=== PATIENT | male | born 1935 | race Caucasian/White ===

== ENCOUNTER 2018-08-16 13:01 | Inpatient (IN) | payer OTHER ==
[~2018-08-16] VITALS: Ht 165.1 cm; Wt 56.1 kg
[~2018-08-16 13:01] MED LIST: ASPI325T30; BENA5TAB33; CARV3.1260; CLOP75TA19; CLOP75TA19 PO; NITR0.4T32
[2018-08-16 13:14] VITALS: Ht 165.1 cm; Wt 56.1 kg
[2018-08-16] MEDS ORDERED: TICA90TA PO (14:47)
[2018-08-16] MEDS ORDERED: ASPI-817 PO (14:47)
[2018-08-16] MEDS ORDERED: CEFP200T2 PO (14:48)
[2018-08-16] MEDS ORDERED: ATOR40TA68 PO (14:48)
[2018-08-16] MEDS ORDERED: METO-335 PO (14:49)
[2018-08-16] MEDS ORDERED: ONDANSETRON 4 MG INJ IV PRN ×2 (15:00→16:00)
[2018-08-16] MEDS ORDERED: ACETAMINOPHEN 325 MG TAB PO PRN (15:00)
[2018-08-16] MEDS ORDERED: NACL 0.9% 3 ML SYG IV SCH (16:00)
--- NOTE | 2018-08-16 16:00 | HP ---
Date/Time of Note Date/Time of Note DATE: 08/16/18 TIME: 15:57 Assessment/Plan VTE Prophylaxis Pharmacological prophylaxis: NA/contraindicated Pharm contraindication: bleeding Lines/Catheters IV Catheter Type (from [email or web address] [place] Assessment/Plan Hospital Course 82-year-old male with comorbidities including hypertension, CAD, and dyslipidemia who recently had a coronary artery stent placed and was started on dual antiplatelet therapy who presented to the emergency room with complaints of hematuria and will be admitted to inpatient setting for further treatment and evaluation. 1. Hematuria. -Most probably secondary to use of dual antiplatelet therapy. -The patient needs to be on dual antiplatelet therapy to prevent stent restenosis. -Urology consult has been obtained to evaluate for any other etiologies. -Urinalysis has been positive and urine cultures were sent. -No antibiotics will be initiated unless recommended by urology. 2. CAD, status post coronary artery stenting. -Continue dual antiplatelet therapy. -Continue statins -Continue beta-blockers. -Obtain cardiology consult. 3. Hypertension. -Resume beta-blockers. 4. Dyslipidemia. -Resume statins. Plan: The patient will be admitted to inpatient telemetry floor. The patient will be started on a low-cholesterol diet. The patient will be started on DVT prophylaxis (bilateral SCDs). The patient will remain a full code. Activities will be as tolerated. The rest of the patient's management will be based on the clinical course, inputs from consultants, and the results of diagnostic studies. Based on the patient's clinical presentation, he most probably requires at least 1 midnight's stay for further management and evaluation of his clinical pr esentation. The patient was seen in collaboration with Dr. Pepper. Result Diagram: 08/16/18 1445 08/16/18 1445 Results 24hrs Laboratory Tests Test 08/16/18 14:45 White Blood Count 7.3 Red Blood Count 4.25 L Hemoglobin 12.4 L Hematocrit 37.8 L Mean Corpuscular Volume 88.9 Mean Corpuscular Hemoglobin 29.2 Mean Corpuscular Hemoglobin Concent 32.8 Red Cell Distribution Width 13.5 Platelet Count 228 Mean Platelet Volume 9.2 Immature Granulocytes % 0.300 Neutrophils % 73.7 Lymphocytes % 15.7 Monocytes % 6.7 Eosinophils % 3.1 Basophils % 0.5 Nucleated Red Blood Cells % 0.0 Immature Granulocytes # 0.020 Neutrophils # 5.4 Lymphocytes # 1.2 Monocytes # 0.5 Eosinophils # 0.2 Basophils # 0.0 Nucleated Red Blood Cells # 0.0 Prothrombin Time 13.3 Prothrombin Time Ratio 1.0 INR International Normalized Ratio 1.00 Activated Partial Thromboplast Time 28.1 Urine Color RED Urine Clarity SLIGHTLY CLOUDY Urine pH 6.0 Urine Specific [place] 1.005 Urine Ketones NEGATIVE Urine Nitrite NEGATIVE Urine Bilirubin NEGATIVE Urine Urobilinogen 1+ H Urine Leukocyte Esterase 1+ H Urine Microscopic RBC 70 H Urine Microscopic WBC > 182 H Urine Squamous Epithelial Cells FEW Urine Hemoglobin 3+ Urine Glucose NEGATIVE Urine Total Protein 3+ H Sodium Level 140 Potassium Level 4.3 Chloride Level 103 Carbon Dioxide Level 28 Anion Gap 9 Blood Urea Nitrogen 19 Creatinine 0.93 Est Glomerular Filtrat Rate mL/min Glucose Level 96 Calcium Level 9.1 Total Bilirubin 0.4 Direct Bilirubin 0.00 Indirect Bilirubin 0.4 Aspartate Amino Transf (AST/SGOT) 22 Alanine Aminotransferase (ALT/SGPT) 26 Alkaline Phosphatase 109 Total Protein 7.5 Albumin 4.2 Globulin 3.30 H Albumin/Globulin Ratio 1.27 Lipase 159 HPI/ROS Admit Date/Time Admit Date/Time Hx of Present Illness Reason for admission: Hematuria. Consultants 1. Jace Casanova MD, Urology. This is a 82-year-old male with a past medical history of CAD status post coronary artery stenting in 2011 and recent coronary artery stenting a few days ago, hypertension, and hyperlipidemia. Patient verbalized that he had his last stent put in a hospital in [place], when he was attending a function in the local area. After the latest stent placement, the patient was started on Brilinta along with aspirin. The patient came back to [place]. The patient has been noticing episodes of hematuria. The patient went to [facility] emergency room on 08/15/2018 where he was evaluated and was discharged home on antibiotics for an apparent urinary tract infection. The patient denied any dysuria, urinary urgency frequency, or febrile illness. The patient denied any flank pain. The patient also had similar problem with hematuria after his first stent placement in 2011. In the emergency room at [facility], the patient was noticed to have a hemoglobin hematocrit of 12.4 and 37.8 respectively. The patient's urinalysis was showing 3+ hemoglobin. Urinalysis also showed 1+ leukocyte esterase with urine microscopic WBC more than 182. The patient's WBC in the b lood was within normal limits. ROS Constitutional: no complaints Eyes: no complaints ENT: no complaints Respiratory: no complaints Cardiovascular: no complaints Gastrointestinal: no complaints Genitourinary: bleeding Musculoskeletal: no complaints Skin: no complaints Neurologic: no complaints Endocrine: no complaints Lymphatic: no complaints Psychological: no complaints Immunologic: no complaints PMH/Family/Social Past Medical History 1. Hypertension. 2. CAD. 3. Dyslipidemia. Medications Current Medications Ondansetron HCl (Zofran Inj) 4 mg ER BRIDGE PRN IV NAUSEA/VOMITING; Start 08/16/18 at 15:00; Stop 08/17/18 at 14:59 Acetaminophen (Tylenol Tab) 650 mg ER BRIDGE PRN PO .MILD PAIN 1-3 OR TEMP; Start 08/16/18 at 15:00; Stop 08/17/18 at 14:59 Coded Allergies: No Known Allergy (Unverified , 08/16/18) Past Surgical History 1. Left heart catheterization with drug-eluting stent placed on 07/18/2011. 2. Left heart catheterization with stent placement in July 2018 with details unavailable Social History The patient lives at home. The patient has a caregiver. Alcohol Use: none Smoking Status: Never smoker Drug Use: none Exam/Review of Systems Vital Signs Vitals Vital Signs Date Temp Pulse Resp B/P (MAP) Pulse Ox O2 O2 Flow FiO2 Time Delivery Rate 08/16/18 98.6 58 20 136/74 100 Room Air 14:46 (94) Exam Exam General: Adequately build 82 year-old male lying in bed in no apparent distress. HEENT: Normocephalic, atraumatic. Eyes: Anicteric sclerae, conjunctivae clear. ENT: Nasal septum midline, oral mucosa moist. Neck supple, no JVD noticed. Respiratory: Bilaterally clear breath sounds. No use of accessory muscles of respiration. No adventitious breath sounds. Cardiovascular: S1, S2 heard. Regular rate and rhythm. Abdomen: Soft, nontender, and nondistended. Bowel sounds positive in all 4 quadrants. Genitourinary: Deferred. Extremities: No cyanosis, no clubbing, no edema. Peripheral pulses palpable. Neurologic: Cranial nerves II through XII grossly intact. The patient is awake, alert, and oriented. Skin: Normal skin turgor. No skin rashes. RUI NOBLES NP August 16, 2018 16:00
--- NOTE | 2018-08-16 16:26 | ERD ---
ER Documentation Chief Complaint Chief Complaint Complains of ablood in the urine x 1 week HPI Patient is an 82-year-old male with coronary disease and possible prostate cancer who presents with "blood in urine". He said that it started 10 to 14 days ago and comes and goes. However today he had blood in the urine that did not stop. He denies fevers and denies pain. He has had prostate issues in the past. He started Brilinta on July 29 after he had a cardiac stent placed for LA. He is also on baby aspirin. Upon review of old medical records this is the patient's seventh visit to the ER since 2011. His primary doctor is Dr. Levy and he does not have a urologist. ROS All systems reviewed and are negative except as per history of present illness. Medications Home Meds Reported Medications Metoprolol Succinate* (Toprol XL*) 25 Mg Tab.sr.24h, 25 MG PO DAILY, #30 TAB 08/16/18 Atorvastatin* (Atorvastatin*) 40 Mg Tablet, 40 MG PO QHS, #30 TAB 08/16/18 Cefpodoxime Proxetil* (Cefpodoxime Proxetil*) 200 Mg Tablet, 200 MG PO Q12, #20 TAB 08/16/18 Ticagrelor* (Brilinta*) 90 Mg Tablet, 90 MG PO Q12, TAB 08/16/18 Aspirin* (Aspirin* EC) 81 Mg Tablet.dr, 81 MG PO DAILY, TAB 08/16/18 Discontinued Reported Medications Aspirin* (Aspirin*) 325 Mg Tablet, DAILY 10/03/11 Clopidogrel Bisulfate (Plavix) 75 Mg Tablet, 75 MG PO DAILY 08/19/11 Nitroglycerin* (Nitroglycerin* SL) 0.4 Mg Tab.subl 07/20/11 Clopidogrel Bisulfate (Plavix) 75 Mg Tablet, DAILY, 0 Refills 07/20/11 Carvedilol* (Carvedilol*) 3.125 Mg Tablet, DAILY, 0 Refills 07/20/11 Benazepril Hcl* (Benazepril Hcl*) 5 Mg Tablet, DAILY, 0 Refills 07/20/11 Allergies Allergies: Coded Allergies: No Known Allergy (Unverified , 08/16/18) PMhx/Soc History of Surgery: Yes (PROSTATE, cardiac stents) Anesthesia Reaction: No Hx Neurological Disorder: No Hx Respiratory Disorders: No Hx Cardiac Disorders: Yes (LA, stents, ) Hx Psychiatric Problems: No Hx Miscellaneous Medical Probl: Yes (PROSTATE, HTN) Hx Alcohol Use: No Hx Substance Use: No Hx Tobacco Use: No Smoking Status: Never smoker FmHx Family History: No diabetes Physical Exam Vitals Vital Signs Date Temp Pulse Resp B/P (MAP) Pulse Ox O2 O2 Flow FiO2 Time Delivery Rate 08/16/18 98.6 59 16 124/75 100 Room Air 16:10 (91) 08/16/18 98.6 58 20 136/74 100 Room Air 14:46 (94) 08/16/18 98.6 86 20 123/58 98 13:14 (79) Physical Exam Const: No acute distress Head: Atraumatic Eyes: Normal Conjunctiva ENT: Normal External Ears, Nose and Mouth. Neck: Full range of motion. No meningismus. Resp: Clear to auscultation bilaterally Cardio: Regular rate and rhythm, no murmurs Abd: Soft, non tender, non distended. Normal bowel sounds Skin: No petechiae or rashes Back: No midline or flank tenderness Ext: No cyanosis, or edema Neur: Awake and alert Psych: Normal Mood and Affect Result Diagram: 08/16/18 1445 08/16/18 1445 Results 24 hrs Laboratory Tests Test 08/16/18 14:45 White Blood Count 7.3 10^3/ul Red Blood Count 4.25 10^6/ul Hemoglobin 12.4 g/dl Hematocrit 37.8 % Mean Corpuscular Volume 88.9 fl Mean Corpuscular Hemoglobin 29.2 pg Mean Corpuscular Hemoglobin Concent 32.8 g/dl Red Cell Distribution Width 13.5 % Platelet Count 228 10^3/UL Mean Platelet Volume 9.2 fl Immature Granulocytes % 0.300 % Neutrophils % 73.7 % Lymphocytes % 15.7 % Monocytes % 6.7 % Eosinophils % 3.1 % Basophils % 0.5 % Nucleated Red Blood Cells % 0.0 /100WBC Immature Granulocytes # 0.020 10^3/ul Neutrophils # 5.4 10^3/ul Lymphocytes # 1.2 10^3/ul Monocytes # 0.5 10^3/ul Eosinophils # 0.2 10^3/ul Basophils # 0.0 10^3/ul Nucleated Red Blood Cells # 0.0 10^3/ul Prothrombin Time 13.3 Sec Prothrombin Time Ratio 1.0 INR International Normalized Ratio 1.00 Activated Partial Thromboplast Time 28.1 Sec Urine Color RED Urine Clarity SLIGHTLY CLOUDY Urine pH 6.0 Urine Specific [place] 1.005 Urine Ketones NEGATIVE mg/dL Urine Nitrite NEGATIVE mg/dL Urine Bilirubin NEGATIVE mg/dL Urine Urobilinogen 1+ mg/dL Urine Leukocyte Esterase 1+ Radha/ul Urine Microscopic RBC 70 /HPF Urine Microscopic WBC > 182 /HPF Urine Squamous Epithelial Cells FEW /HPF Urine Hemoglobin 3+ mg/dL Urine Glucose NEGATIVE mg/dL Urine Total Protein 3+ mg/dl Sodium Level 140 mmol/L Potassium Level 4.3 mmol/L Chloride Level 103 mmol/L Carbon Dioxide Level 28 mmol/L Anion Gap 9 Blood Urea Nitrogen 19 mg/dl Creatinine 0.93 mg/dl Est Glomerular Filtrat Rate mL/min mL/min Glucose Level 96 mg/dl Calcium Level 9.1 mg/dl Total Bilirubin 0.4 mg/dl Direct Bilirubin 0.00 mg/dl Indirect Bilirubin 0.4 mg/dl Aspartate Amino Transf (AST/SGOT) 22 IU/L Alanine Aminotransferase (ALT/SGPT) 26 IU/L Alkaline Phosphatase 109 IU/L Total Protein 7.5 g/dl Albumin 4.2 g/dl Globulin 3.30 g/dl Albumin/Globulin Ratio 1.27 Lipase 159 U/L Current Medications Medications Dose Sig/Sheron Start Time Status Last (Trade) Ordered Route PRN Stop Time Admin Dose Reason Admin Ondansetron 4 mg ER BRIDGE 08/16/18 HCl (Zofran PRN IV 15:00 Inj) NAUSEA/VOMITI 08/17/18 14:59 NG 650 mg ER BRIDGE 08/16/18 Acetaminophen PRN PO 15:00 (Tylenol .MILD PAIN 08/17/18 14:59 Tab) 1-3 OR TEMP IV Flush 3 ml PER 08/16/18 (NS 3 ml) PROTOCOL IV 16:00 Ondansetron 4 mg Q6H PRN 08/16/18 HCl (Zofran IV 16:00 Inj) NAUSEA/VOMITI NG Aspirin 81 mg DAILY PO 08/17/18 (Halfprin) 09:00 40 mg QHS PO 08/16/18 Atorvastatin 21:00 Calcium (Lipitor) Metoprolol 25 mg DAILY PO 08/17/18 Succinate 09:00 (Toprol Xl) Ticagrelor 90 mg Q12 PO 08/16/18 (Brilinta) 21:00 Ceftriaxone 50 ml @ ONCE ONCE 08/16/18 UNV Sodium 100 mls/hr IVPB 16:30 08/16/18 16:59 Procedures/MDM Patient is an 82-year-old male presents with acute hematuria. He was also found to have cystitis. Urine culture was obtained as well. The patient is having a lot of blood from the urine and was recently started on Brilinta which I believe is likely the cause of the hematuria. The decision will need to be made about anticoagulation as the patient did have a stent placed and I am worried about stent occlusion.I spoke with Dr. Casanova for consultation from urology and the patient will be admitted to the care of the panel team to a telemetry bed. Departure Diagnosis: Primary Impression: Cystitis Additional Impression: Hematuria Hematuria type: unspecified type Qualified Codes: R31.9 - Hematuria, unspecified Condition: ALFRED Mathur MD August 16, 2018 16:26
[2018-08-16] MEDS ORDERED: CEFTRIAXONE 1 GM/50 ML (PMX) 50 ML IVPB ONE (16:30)
[2018-08-16 17:32] VITALS: PULSE 55
[2018-08-16 17:48] VITALS: BP 133/63; PULSE 54; RESP 20
--- NOTE | 2018-08-16 18:57 | CONS ---
Assessment/Plan Assessment/Plan Hospital Course (Demo Recall) 82-year-old male had a heart attack about 3 weeks ago while at [place]. He underwent coronary angiography and stent placement. He was started on anticoagulation. He started having hematuria and that gradually got worse. He did go and see his PCP Dr. BRYANT and he states that he was sent to a urologist but he states no rectal exam was done. As he continued to have hematuria he edx t to [facility] and was evaluated there and discharged home with a diagnosis of urinary tract infection. Again since he continued to have hematuria he came in to the emergency room here and was admitted and a urology consultation was requested. Upon careful questioning of the patient and exam ining him it appears he underwent prostate surgery about 40 years ago and about 10 years ago he was diagnosed with prostate cancer was advised to have radiation therapy and did not go through any treatment. Also on the rectal examination now his prostate is very large and hard most likely consistent was prostate cancer. His hematuria is at the start of the urination then the urine becomes a clear and it ends with hematuria. This is also suggestive of bleeding from his prostate. He denies any history of kidney stones. It appears that the patient also had a CT scan of the abdomen and pelvis in October 2011 and that showed at that time a very large prostate as well. The most likely this patient is bleeding from his prostate and has prostate cancer. The recommendation would be to do PSA on the blood drawn on admission start him on bicalutamide and finasteride, do a CT scan of the abdomen and pelvis to see if there is any metastasis. Monitor the color of his urine and his H&H. Also will put him on tamsulosin to help him urinating easier. Consultation Date/Type/Reason Admit Date/Time Date of Consultation: August 16, 2018 Type of Consult Urology Reason for Consultation Gross hematuria Requesting Provider: BENITO RODRIGUEZ MD Date/Time of Note DATE: 08/16/18 TIME: 18:43 Hx of Present Illness 82-year-old male had a heart attack about 3 weeks ago while at [place]. He underwent coronary angiography and stent placement. He was started on anticoagulation. He started having hematuria and that gradually got worse. He did go and see his PCP Dr. BRYANT and he states that he was sent to a urologist but he states no rectal exam was done. As he continued to have hematuria he went to [facility] and was evaluated there and discharged home with a diagnosis of urinary tract infection. Again since he continued to have hematuria he came in to the emergency room here and was admitted and a urology consultation was requested. Upon careful questioning of the patient and examining him it appears he underwent prostate surgery about 40 years ago and about 10 years ago he was diagnosed with prostate cancer was advised to have radiation therapy and did not go through any treatment. Also on the rectal examination now his prostate is very large and hard most likely consistent was prostate cancer. His hematuria is at the start of the urination then the urine becomes a clear and it ends with hematuria. This is also suggestive of bleeding from his prostate. He denies any history of kidney stones. Constitutional: no complaints Eyes: no complaints ENT: no complaints Respiratory: no complaints; No wheezing Cardiovascular: other (Recent myocardial infarction about 3 weeks ago, status post coronary angiography and stent placement.) Gastrointestinal: no complaints; No nausea, No vomiting Genitourinary: hematuria Musculoskeletal: no complaints Skin: no complaints Neurologic: no complaints Endocrine: no complaints Lymphatic: no complaints Psychological: no complaints Immunologic: no complaints Past Medical History Medical History: cancer (Of prostate), coronary artery disease, hypertension Home Meds Reported Medications Metoprolol Succinate* (Toprol XL*) 25 Mg Tab.sr.24h, 25 MG PO DAILY, #30 TAB 08/16/18 Atorvastatin* (Atorvastatin*) 40 Mg Tablet, 40 MG PO QHS, #30 TAB 08/16/18 Cefpodoxime Proxetil* (Cefpodoxime Proxetil*) 200 Mg Tablet, 200 MG PO Q12, #20 TAB 08/16/18 Ticagrelor* (Brilinta*) 90 Mg Tablet, 90 MG PO Q12, TAB 08/16/18 Aspirin* (Aspirin* EC) 81 Mg Tablet.dr, 81 MG PO DAILY, TAB 08/16/18 Discontinued Reported Medications Aspirin* (Aspirin*) 325 Mg Tablet, DAILY 10/03/11 Clopidogrel Bisulfate (Plavix) 75 Mg Tablet, 75 MG PO DAILY 08/19/11 Nitroglycerin* (Nitroglycerin* SL) 0.4 Mg Tab.subl 07/20/11 Clopidogrel Bisulfate (Plavix) 75 Mg Tablet, DAILY, 0 Refills 07/20/11 Carvedilol* (Carvedilol*) 3.125 Mg Tablet, DAILY, 0 Refills 07/20/11 Benazepril Hcl* (Benazepril Hcl*) 5 Mg Tablet, DAILY, 0 Refills 07/20/11 Medications Current Medications IV Flush (NS 3 ml) 3 ml PER PROTOCOL IV ; Start 08/16/18 at 16:00 Ondansetron HCl (Zofran Inj) 4 mg Q6H PRN IV NAUSEA/VOMITING; Start 08/16/18 at 16:00 Aspirin (Halfprin) 81 mg DAILY PO ; Start 08/17/18 at 09:00 Atorvastatin Calcium (Lipitor) 40 mg QHS PO ; Start 08/16/18 at 21:00 Metoprolol Succinate (Toprol Xl) 25 mg DAILY PO ; Start 08/17/18 at 09:00 Ticagrelor (Brilinta) 90 mg Q12 PO ; Start 08/16/18 at 21:00 Finasteride (Proscar) 5 mg DAILY PO ; Start 08/16/18 at 19:00; Status UNV Bicalutamide (Casodex) 50 mg DAILY PO ; Start 08/16/18 at 19:00; Status UNV Allergies: Coded Allergies: No Known Allergy (Unverified , 08/16/18) Past Surgical History Past Surgical Hx: other (He states he has had inguinal hernia repair, recent coronary angiography and stent placement) Social History Alcohol Use: none Smoking Status: Never smoker Drug Use: none Exam/Review of Systems Exam Vitals Vital Signs Date Temp Pulse Resp B/P (MAP) Pulse Ox O2 O2 Flow FiO2 Time Delivery Rate 08/16/18 97.9 54 20 133/63 99 Room Air 17:48 (86) Constitutional: alert, oriented Psych: no complaints Head: normocephalic Eyes: nl conjunctiva ENMT: nl external ears & nose Neck: supple, non-tender Respiratory: normal air movement; No wheezing Gastrointestinal: soft, non-tender Genitourinary - Male: other (Both testes are atrophic, rectal exam hard and large prostate); No CVA tenderness Musculoskeletal: nl extremities to inspection Extremities: No calf tenderness Neurological: nl mental status Skin: nl turgor Results Result Diagram: 08/16/18 1445 08/16/18 1445 Results 24hrs Laboratory Tests Test 08/16/18 14:45 White Blood Count 7.3 Red Blood Count 4.25 L Hemoglobin 12.4 L Hematocrit 37.8 L Mean Corpuscular Volume 88.9 Mean Corpuscular Hemoglobin 29.2 Mean Corpuscular Hemoglobin Concent 32.8 Red Cell Distribution Width 13.5 Platelet Count 228 Mean Platelet Volume 9.2 Immature Granulocytes % 0.300 Neutrophils % 73.7 Lymphocytes % 15.7 Monocytes % 6.7 Eosinophils % 3.1 Basophils % 0.5 Nucleated Red Blood Cells % 0.0 Immature Granulocytes # 0.020 Neutrophils # 5.4 Lymphocytes # 1.2 Monocytes # 0.5 Eosinophils # 0.2 Basophils # 0.0 Nucleated Red Blood Cells # 0.0 Prothrombin Time 13.3 Prothrombin Time Ratio 1.0 INR International Normalized Ratio 1.00 Activated Partial Thromboplast Time 28.1 Urine Color RED Urine Clarity SLIGHTLY CLOUDY Urine pH 6.0 Urine Specific [place] 1.005 Urine Ketones NEGATIVE Urine Nitrite NEGATIVE Urine Bilirubin NEGATIVE Urine Urobilinogen 1+ H Urine Leukocyte Esterase 1+ H Urine Microscopic RBC 70 H Urine Microscopic WBC > 182 H Urine Squamous Epithelial Cells FEW Urine Hemoglobin 3+ Urine Glucose NEGATIVE Urine Total Protein 3+ H Sodium Level 140 Potassium Level 4.3 Chloride Level 103 Carbon Dioxide Level 28 Anion Gap 9 Blood Urea Nitrogen 19 Creatinine 0.93 Est Glomerular Filtrat Rate mL/min Glucose Level 96 Hemoglobin A1c 5.7 Calcium Level 9.1 Total Bilirubin 0.4 Direct Bilirubin 0.00 Indirect Bilirubin 0.4 Aspartate Amino Transf (AST/SGOT) 22 Alanine Aminotransferase (ALT/SGPT) 26 Alkaline Phosphatase 109 B-Type Natriuretic Peptide 1510 H Total Protein 7.5 Albumin 4.2 Globulin 3.30 H Albumin/Globulin Ratio 1.27 Lipase [address] scan of the abdomen and pelvis done on 10/03/2011: 1. NO CT EVIDENCE OF UROLITHIASIS OR OBSTRUCTIVE UROPATHY. 2. SIGNIFICANTLY ENLARGED PROSTATE. RECOMMEND PSA CORRELATION. 3. SMALL FOCUS OF NON-DEPENDENT AIR IN THE URINARY BLADDER WHICH MAY BE FROM A PRIOR WHEAT CATHETER. 4. 7 MM RIGHT LOWER LOBE NODULE. CONSIDER 6 TO 12 MONTH FOLLOWUP. 5. STOOL FILLED LARGE BOWEL. Medications Medication Current Medications IV Flush (NS 3 ml) 3 ml PER PROTOCOL IV ; Start 08/16/18 at 16:00 Ondansetron HCl (Zofran Inj) 4 mg Q6H PRN IV NAUSEA/VOMITING; Start 08/16/18 at 16:00 Aspirin (Halfprin) 81 mg DAILY PO ; Start 08/17/18 at 09:00 Atorvastatin Calcium (Lipitor) 40 mg QHS PO ; Start 08/16/18 at 21:00 Metoprolol Succinate (Toprol Xl) 25 mg DAILY PO ; Start 08/17/18 at 09:00 Ticagrelor (Brilinta) 90 mg Q12 PO ; Start 08/16/18 at 21:00 Finasteride (Proscar) 5 mg DAILY PO ; Start 08/16/18 at 19:00; Status UNV Bicalutamide (Casodex) 50 mg DAILY PO ; Start 08/16/18 at 19:00; Status UNV CHADWICK PAVON MD August 16, 2018 18:56
[2018-08-16] MEDS ORDERED: BICALUTAMIDE 50 MG TAB PO SCH (19:00)
[2018-08-16 19:38] VITALS: BP 150/99; PULSE 68; RESP 21
[2018-08-16 20:00] VITALS: PULSE 75
[2018-08-16] MEDS: BICALUTAMIDE 50 MG TAB PO SCH (21:00)
[2018-08-16] MEDS: TAMSULOSIN (SR) 0.4 MG CAP PO SCH (22:29)
[2018-08-16] MEDS: ATORVASTATIN 40 MG TAB PO SCH (22:29)
[2018-08-16] MEDS: TICAGRELOR 90 MG TABLET PO SCH (22:33)
[2018-08-16] MEDS: FINASTERIDE 5 MG TAB PO SCH (22:41)
[2018-08-16 23:54] VITALS: BP 135/63; PULSE 64; RESP 18
[2018-08-17] VITALS (10 sets, daily range): BP systolic 111–135; BP diastolic 61–74; PULSE 41–98; RESP 2–20
[2018-08-17] MEDS: FINASTERIDE 5 MG TAB PO SCH (08:33)
[2018-08-17] MEDS: ASPIRIN (EC) 81 MG TAB PO SCH (08:33)
[2018-08-17] MEDS: METOPROLOL (XL) 25 MG TAB PO SCH (08:34)
[2018-08-17] MEDS: TICAGRELOR 90 MG TABLET PO SCH ×2 (08:36→21:46)
[2018-08-17] MEDS: BICALUTAMIDE 50 MG TAB PO SCH ×2 (08:37→15:49)
--- NOTE | 2018-08-17 10:03 | CONS ---
Assessment/Plan Assessment/Plan Assessment/Plan (Daily) Assessment 1) CAD 2) Recent history of UT and PCI per patient history 3) HTN 4) HLP 5) Hematuria 6) Prostate Cancer Plan: 1) continue ASA and Brilinta for now given high risk of acute stent thrombosos if has to be stopped 2) Appreciate urology input 3) Echo 4) Records from [facility] to assess whether ALEXANDER or BMS was placed dw patient Consultation Date/Type/Reason Admit Date/Time Date of Consultation: August 17, 2018 Type of Consult Cardiology Reason for Consultation UT Date/Time of Note DATE: 08/17/18 TIME: 10:00 Hx of Present Illness admitted with hematuria 3 weeks after PCI in [facility] per patient where he was admitted with UT. currently no chest pain, no sob, no palpitations, no syncope or near syncope Constitutional: no complaints Respiratory: no complaints Cardiovascular: no complaints Gastrointestinal: no complaints Genitourinary: bleeding Musculoskeletal: no complaints Skin: no complaints Neurologic: no complaints Endocrine: no complaints Past Medical History Medical History: coronary artery disease, high cholesterol, hypertension Home Meds Reported Medications Metoprolol Succinate* (Toprol XL*) 25 Mg Tab.sr.24h, 25 MG PO DAILY, #30 TAB 08/16/18 Atorvastatin* (Atorvastatin*) 40 Mg Tablet, 40 MG PO QHS, #30 TAB 08/16/18 Cefpodoxime Proxetil* (Cefpodoxime Proxetil*) 200 Mg Tablet, 200 MG PO Q12, #20 TAB 08/16/18 Ticagrelor* (Brilinta*) 90 Mg Tablet, 90 MG PO Q12, TAB 08/16/18 Aspirin* (Aspirin* EC) 81 Mg Tablet.dr, 81 MG PO DAILY, TAB 08/16/18 Discontinued Reported Medications Aspirin* (Aspirin*) 325 Mg Tablet, DAILY 10/03/11 Clopidogrel Bisulfate (Plavix) 75 Mg Tablet, 75 MG PO DAILY 08/19/11 Nitroglycerin* (Nitroglycerin* SL) 0.4 Mg Tab.subl 07/20/11 Clopidogrel Bisulfate (Plavix) 75 Mg Tablet, DAILY, 0 Refills 07/20/11 Carvedilol* (Carvedilol*) 3.125 Mg Tablet, DAILY, 0 Refills 07/20/11 Benazepril Hcl* (Benazepril Hcl*) 5 Mg Tablet, DAILY, 0 Refills 07/20/11 Medications Current Medications IV Flush (NS 3 ml) 3 ml PER PROTOCOL IV ; Start 08/16/18 at 16:00 Ondansetron HCl (Zofran Inj) 4 mg Q6H PRN IV NAUSEA/VOMITING; Start 08/16/18 at 16:00 Aspirin (Halfprin) 81 mg DAILY PO Last administered on 08/17/18 08:33; Admin Dose 81 MG; Start 08/17/18 at 09:00 Atorvastatin Calcium (Lipitor) 40 mg QHS PO Last administered on 08/16/18 22:29; Admin Dose 40 MG; Start 08/16/18 at 21:00 Metoprolol Succinate (Toprol Xl) 25 mg DAILY PO Last administered on 08/17/18at 08:34; Admin Dose 25 MG; Start 08/17/18 at 09:00 Ticagrelor (Brilinta) 90 mg Q12 PO Last administered on 08/17/18at 08:36; Admin Dose 90 MG; Start 08/16/18 at 21:00 Finasteride (Proscar) 5 mg DAILY PO Last administered on 08/17/18 08:33; Admin Dose 5 MG; Start 08/16/18 at 19:00 Tamsulosin HCl (Flomax) 0.4 mg HS PO Last administered on 08/16/18at 22:29; Admin Dose 0.4 MG; Start 08/16/18 at 21:00 Bicalutamide (Casodex) 50 mg DAILY PO ; Start 08/16/18 at 21:00 Allergies: Coded Allergies: No Known Allergy (Unverified , 08/16/18) Past Surgical History Past Surgical Hx: angioplasty, other (He states he has had inguinal hernia repair, recent coronary angiography and stent placement) Family History Significant Family History: hypertension Social History Alcohol Use: none Smoking Status: Never smoker Drug Use: none Exam/Review of Systems Vital Signs Vitals Vital Signs Date Temp Pulse Resp B/P (MAP) Pulse Ox O2 O2 Flow FiO2 Time Delivery Rate 08/17/18 98 08:01 08/17/18 98.5 20 111/61 91 07:20 (78) 08/16/18 Room Air 17:48 Intake and Output 08/16/18 08/16/18 08/17/18 1515:00 23:00 07:00 IntakeIntake Total 400 ml 300 ml OutputOutput Total 250 ml 500 ml BalanceBalance 150 ml -200 ml Exam Constitutional: alert, oriented Head: normocephalic, atraumatic Neck: supple Respiratory: clear to auscultation Cardiovascular: regular rate and rhythm Gastrointestinal: soft Musculoskeletal: nl extremities to inspection Extremities: normal pulses Labs Result Diagram: 08/17/18 0508/17/18 0521 Results 24hrs Laboratory Tests Test 08/16/18 14:45 08/17/18 05:21 White Blood Count 7.3 5.3 # Red Blood Count 4.25 L 3.70 L Hemoglobin 12.4 L 11.0 L Hematocrit 37.8 L 33.1 L Mean Corpuscular Volume 88.9 89.5 Mean Corpuscular Hemoglobin 29.2 29.7 Mean Corpuscular Hemoglobin Concent 32.8 33.2 Red Cell Distribution Width 13.5 13.4 Platelet Count 228 214 Mean Platelet Volume 9.2 9.7 Immature Granulocytes % 0.300 0.200 Neutrophils % 73.7 61.5 Lymphocytes % 15.7 25.3 Monocytes % 6.7 7.5 Eosinophils % 3.1 5.1 Basophils % 0.5 0.4 Nucleated Red Blood Cells % 0.0 0.0 Immature Granulocytes # 0.020 0.010 Neutrophils # 5.4 3.3 Lymphocytes # 1.2 1.4 Monocytes # 0.5 0.4 Eosinophils # 0.2 0.3 Basophils # 0.0 0.0 Nucleated Red Blood Cells # 0.0 0.0 Prothrombin Time 13.3 Prothrombin Time Ratio 1.0 INR International Normalized Ratio 1.00 Activated Partial Thromboplast Time 28.1 Urine Color RED Urine Clarity SLIGHTLY CLOUDY Urine pH 6.0 Urine Specific [place] 1.005 Urine Ketones NEGATIVE Urine Nitrite NEGATIVE Urine Bilirubin NEGATIVE Urine Urobilinogen 1+ H Urine Leukocyte Esterase 1+ H Urine Microscopic RBC 70 H Urine Microscopic WBC > 182 H Urine Squamous Epithelial Cells FEW Urine Hemoglobin 3+ Urine Glucose NEGATIVE Urine Total Protein 3+ H Sodium Level 140 140 Potassium Level 4.3 4.4 Chloride Level 103 107 Carbon Dioxide Level 28 29 Anion Gap 9 4 L Blood Urea Nitrogen 19 19 Creatinine 0.93 1.03 Est Glomerular Filtrat Rate mL/min Glucose Level 96 99 Hemoglobin A1c 5.7 Calcium Level 9.1 8.6 Total Bilirubin 0.4 0.5 Direct Bilirubin 0.00 0.00 Indirect Bilirubin 0.4 0.5 Aspartate Amino Transf (AST/SGOT) 22 20 Alanine Aminotransferase (ALT/SGPT) 26 22 Alkaline Phosphatase 109 74 B-Type Natriuretic Peptide 1510 H Total Protein 7.5 6.0 #L Albumin 4.2 3.4 Globulin 3.30 H 2.60 Albumin/Globulin Ratio 1.27 1.30 Lipase 159 Prostate Specific Antigen 49.1 H Phosphorus Level 4.2 Magnesium Level 2.3 Triglycerides Level 56 Cholesterol Level 88 L LDL Cholesterol, Calculated 42 HDL Cholesterol 35 Cholesterol/HDL Ratio 2.5 Medications Medications Current Medications IV Flush (NS 3 ml) 3 ml PER PROTOCOL IV ; Start 08/16/18 at 16:00 Ondansetron HCl (Zofran Inj) 4 mg Q6H PRN IV NAUSEA/VOMITING; Start 08/16/18 at 16:00 Aspirin (Halfprin) 81 mg DAILY PO Last administered on 08/17/18 08:33; Admin Dose 81 MG; Start 08/17/18 at 09:00 Atorvastatin Calcium (Lipitor) 40 mg QHS PO Last administered on 08/16/18 22:29; Admin Dose 40 MG; Start 08/16/18 at 21:00 Metoprolol Succinate (Toprol Xl) 25 mg DAILY PO Last administered on 08/17/18 08:34; Admin Dose 25 MG; Start 08/17/18 at 09:00 Ticagrelor (Brilinta) 90 mg Q12 PO Last administered on 08/17/18 08:36; Admin Dose 90 MG; Start 08/16/18 at 21:00 Finasteride (Proscar) 5 mg DAILY PO Last administered on 08/17/18 08:33; Admin Dose 5 MG; Start 08/16/18 at 19:00 Tamsulosin HCl (Flomax) 0.4 mg HS PO Last administered on 08/16/18 22:29; Admin Dose 0.4 MG; Start 08/16/18 at 21:00 Bicalutamide (Casodex) 50 mg DAILY PO ; Start 08/16/18 at 21:00 RAMON SNYDER MD August 17, 2018 10:03
--- NOTE | 2018-08-17 10:23 | CONS ---
Consult Date/Type/Reason Admit Date/Time August 16, 2018 at 14:55 Initial Consult Date 08/17/18 Type of Consultation: Urology Reason for Consultation Gross hematuria Requesting Provider: BENITO RODRIGUEZ MD Date/Time of Note DATE: 08/17/18 TIME: 10:17 Subjective The patient is feeling better and he is urinating clear urine this morning. Objective Vitals Vital Signs Date Temp Pulse Resp B/P (MAP) Pulse Ox O2 O2 Flow FiO2 Time Delivery Rate 08/17/18 98 08:01 08/17/18 98.5 20 111/61 91 07:20 (78) 08/16/18 Room Air 17:48 Intake and Output 08/16/18 08/16/18 08/17/18 1515:00 23:00 07:00 IntakeIntake Total 400 ml 300 ml OutputOutput Total 250 ml 500 ml BalanceBalance 150 ml -200 ml Exam The abdomen is soft, the bladder is not distended. I had him urinate and he did and the color of the urine is clear to very slightly pinkish. There are no clots in his urine Results/Medications Result Diagram: 08/17/18 0521 08/17/18 0521 Results 24 hrs Laboratory Tests Test 08/16/18 14:45 08/17/18 05:21 White Blood Count 7.3 5.3 # Red Blood Count 4.25 L 3.70 L Hemoglobin 12.4 L 11.0 L Hematocrit 37.8 L 33.1 L Mean Corpuscular Volume 88.9 89.5 Mean Corpuscular Hemoglobin 29.2 29.7 Mean Corpuscular Hemoglobin Concent 32.8 33.2 Red Cell Distribution Width 13.5 13.4 Platelet Count 228 214 Mean Platelet Volume 9.2 9.7 Immature Granulocytes % 0.300 0.200 Neutrophils % 73.7 61.5 Lymphocytes % 15.7 25.3 Monocytes % 6.7 7.5 Eosinophils % 3.1 5.1 Basophils % 0.5 0.4 Nucleated Red Blood Cells % 0.0 0.0 Immature Granulocytes # 0.020 0.010 Neutrophils # 5.4 3.3 Lymphocytes # 1.2 1.4 Monocytes # 0.5 0.4 Eosinophils # 0.2 0.3 Basophils # 0.0 0.0 Nucleated Red Blood Cells # 0.0 0.0 Prothrombin Time 13.3 Prothrombin Time Ratio 1.0 INR International Normalized Ratio 1.00 Activated Partial Thromboplast Time 28.1 Urine Color RED Urine Clarity SLIGHTLY CLOUDY Urine pH 6.0 Urine Specific [place] 1.005 Urine Ketones NEGATIVE Urine Nitrite NEGATIVE Urine Bilirubin NEGATIVE Urine Urobilinogen 1+ H Urine Leukocyte Esterase 1+ H Urine Microscopic RBC 70 H Urine Microscopic WBC > 182 H Urine Squamous Epithelial Cells FEW Urine Hemoglobin 3+ Urine Glucose NEGATIVE Urine Total Protein 3+ H Sodium Level 140 140 Potassium Level 4.3 4.4 Chloride Level 103 107 Carbon Dioxide Level 28 29 Anion Gap 9 4 L Blood Urea Nitrogen 19 19 Creatinine 0.93 1.03 Est Glomerular Filtrat Rate mL/min Glucose Level 96 99 Hemoglobin A1c 5.7 Calcium Level 9.1 8.6 Total Bilirubin 0.4 0.5 Direct Bilirubin 0.00 0.00 Indirect Bilirubin 0.4 0.5 Aspartate Amino Transf (AST/SGOT) 22 20 Alanine Aminotransferase (ALT/SGPT) 26 22 Alkaline Phosphatase 109 74 B-Type Natriuretic Peptide 1510 H Total Protein 7.5 6.0 #L Albumin 4.2 3.4 Globulin 3.30 H 2.60 Albumin/Globulin Ratio 1.27 1.30 Lipase 159 [id number] Prostate Specific Antigen 49.1 H [id number] Phosphorus Level 4.2 Magnesium Level 2.3 Triglycerides Level 56 Cholesterol Level 88 L LDL Cholesterol, Calculated 42 HDL Cholesterol 35 Cholesterol/HDL Ratio 2.5 PSA 49.1 Home Meds Reported Medications Metoprolol Succinate* (Toprol XL*) 25 Mg Tab.sr.24h, 25 MG PO DAILY, #30 TAB 08/16/18 Atorvastatin* (Atorvastatin*) 40 Mg Tablet, 40 MG PO QHS, #30 TAB 08/16/18 Cefpodoxime Proxetil* (Cefpodoxime Proxetil*) 200 Mg Tablet, 200 MG PO Q12, #20 TAB 08/16/18 Ticagrelor* (Brilinta*) 90 Mg Tablet, 90 MG PO Q12, TAB 08/16/18 Aspirin* (Aspirin* EC) 81 Mg Tablet.dr, 81 MG PO DAILY, TAB 08/16/18 Discontinued Reported Medications Aspirin* (Aspirin*) 325 Mg Tablet, DAILY 10/03/11 Clopidogrel Bisulfate (Plavix) 75 Mg Tablet, 75 MG PO DAILY 08/19/11 Nitroglycerin* (Nitroglycerin* SL) 0.4 Mg Tab.subl 07/20/11 Clopidogrel Bisulfate (Plavix) 75 Mg Tablet, DAILY, 0 Refills 07/20/11 Carvedilol* (Carvedilol*) 3.125 Mg Tablet, DAILY, 0 Refills 07/20/11 Benazepril Hcl* (Benazepril Hcl*) 5 Mg Tablet, DAILY, 0 Refills 07/20/11 Medications Current Medications IV Flush (NS 3 ml) 3 ml PER PROTOCOL IV ; Start 08/16/18 at 16:00 Ondansetron HCl (Zofran Inj) 4 mg Q6H PRN IV NAUSEA/VOMITING; Start 08/16/18 at 16:00 Aspirin (Halfprin) 81 mg DAILY PO Last administered on 08/17/18 08:33; Admin Dose 81 MG; Start 08/17/18 at 09:00 Atorvastatin Calcium (Lipitor) 40 mg QHS PO Last administered on 08/16/18 22:29; Admin Dose 40 MG; Start 08/16/18 at 21:00 Metoprolol Succinate (Toprol Xl) 25 mg DAILY PO Last administered on 08/17/18 08:34; Admin Dose 25 MG; Start 08/17/18 at 09:00 Ticagrelor (Brilinta) 90 mg Q12 PO Last administered on 08/17/18 08:36; Admin Dose 90 MG; Start 08/16/18 at 21:00 Finasteride (Proscar) 5 mg DAILY PO Last administered on 08/17/18 08:33; Admin Dose 5 MG; Start 08/16/18 at 19:00 Tamsulosin HCl (Flomax) 0.4 mg HS PO Last administered on 08/16/18 22:29; Admin Dose 0.4 MG; Start 08/16/18 at 21:00 Bicalutamide (Casodex) 50 mg DAILY PO ; Start 08/16/18 at 21:[address] scan of the abdomen and pelvis: Mass effect base of bladder consistent with given history of prostate cancer. No evidence of local invasion or metastatic disease on limited noncontrast CT abdomen pelvis. Bibasilar lung fibrosis. Coronary artery stent. Vascular calcifications. 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 Assessment/Plan Hospital Course (Demo Recall) 82-year-old male had a heart attack about 3 weeks ago while at [facility]. He underwent coronary angiography and stent placement. He was started on anticoagulation. He started having hematuria and that gradually got worse. He did go and see his PCP Dr. BRYANT and he states that he was sent to a urologist but he states no rectal exam was done. As he continued to have hematuria he went to [facility] and was evaluated there and discharged home with a diagnosis of urinary tract infection. Again since he continued to have hematuria he came in to the emergency room here and was admitted and a urology consultation was requested. Upon careful questioning of the patient and examining him it appears he underwent prostate surgery about 40 years ago and about 10 years ago he was diagnosed with prostate cancer was advised to have radiation therapy and did not go through any treatment. Also on the rectal examination now his prostate is very large and hard most likely consistent was prostate cancer. His hematuria is at the start of the urination then the urine becomes a clear and it ends with hematuria. This is also suggestive of bleeding from his prostate. He denies any history of kidney stones. It appears that the patient also had a CT scan of the abdomen and pelvis in October 2011 and that showed at that time a very large prostate as well. The most likely this patient is bleeding from his prostate and has prostate cancer. Patient did have the CT scan of the abdomen and pelvis done last night and that showed: Mass effect base of bladder consistent with given history of prostate cancer. No evidence of local invasion or metastatic disease on limited noncontrast CT abdomen pelvis. Bibasilar lung fibrosis. Coronary artery stent. Vascular calcifications. 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 Also the PSA came back 49.1. I did show the patient his CT scan and the large prostate protruding into the bladder. I explained to him the treatment. I explained to him why we are giving him the Casodex and the Proscar and that he will need later on to see his medical group urologist for consideration of Lupron Depo injections. He did understand and he is accepting to take the Casodex. He did not take it last night. His urine has cleared. Continue present treatment CHADWICK PAVON MD August 17, 2018 10:23
--- NOTE | 2018-08-17 12:18 | PN ---
Date/Time of Note Date/Time of Note DATE: 08/17/18 TIME: 12:15 Assessment/Plan VTE Prophylaxis Risk score (from Ns)>0 risk: 4 SCD applied (from Ns): Yes Pharmacological prophylaxis: NA/contraindicated Pharm contraindication: bleeding Lines/Catheters IV [facility]from [facility] [place] [facility] Urinary Cath still in place: No Assessment/Plan Hospital Course SUBJECTIVE: No gross hematuria reported. OBJECTIVE: Physical Exam General: Adequately build 82 year-old male lying in bed in no apparent distress. HEENT: Normocephalic, atraumatic. Eyes: Anicteric sclerae, conjunctivae clear. ENT: Nasal septum midline, oral mucosa moist. Neck supple, no JVD noticed. Respiratory: Bilaterally clear breath sounds. No use of accessory muscles of res piration. No adventitious breath sounds. Cardiovascular: S1, S2 heard. Regular rate and rhythm. Abdomen: Soft, nontender, and nondistended. Bowel sounds positive in all 4 quadrants. Genitourinary: Deferred. Extremities: No cyanosis, no clubbing, no edema. Peripheral pulses palpable. Neurologic: Cranial nerves II through XII grossly intact. The patient is awake, alert, and oriented. Skin: Normal skin turgor. No skin rashes. Labs & Vitals per chart ASSESSMENT & PLAN 82-year-old male with comorbidities including hypertension, CAD, and dyslipidemia who recently had a coronary artery stent placed and was started on dual antiplatelet therapy who presented to the emergency room with complaints of hematuria and will be admitted to inpatient setting for further treatment and evaluation. 1. Hematuria. -Status post evaluation by urology, who conveyed that this could be most probab ly secondary to his enlarged prostate. -The patient needs to be on dual antiplatelet therapy to prevent stent restenosis. -Urinalysis has been positive and urine cultures were sent. -No antibiotics will be initiated unless recommended by urology. 2. Prostate cancer. -Known history of prostate cancer approximately 10 years ago when the patient had refused treatment. -Continue Casodex. -Continue Proscar. -Needs outpatient urology follow-up. 3. CAD, status post coronary artery stenting. -Continue dual antiplatelet therapy. -Continue statins -Continue beta-blockers. -Cardiology following. [facility] 4. Hypertension. -Continue beta-blockers. 5. Dyslipidemia. -Continue statins. 6. Normocytic, normochromic anemia. -Monitor H&H closely. -Questionable anemia of acute blood loss. 7. Fluids, electrolytes, and nutrition. -Low-cholesterol diet. 8. DVT prophylaxis. -Bilateral SCDs. 9. Plan. -Continue to monitor H&H closely. -Await further urology and cardiology recommendations. The diagnostic findings, the treatment, and the plan of care was explained to the patient's family, who was at the bedside. The patient was seen in collaboration with Dr. Prieto. Result Diagram: 08/17/1852008/17/1821 Results 24hrs Laboratory Tests Test 08/16/18 14:45 08/17/18 05:21 White Blood Count 7.3 5.3 # Red Blood Count 4.25 L 3.70 L Hemoglobin 12.4 L 11.0 L Hematocrit 37.8 L 33.1 L Mean Corpuscular Volume 88.9 89.5 Mean Corpuscular Hemoglobin 29.2 29.7 Mean Corpuscular Hemoglobin Concent 32.8 33.2 Red Cell Distribution Width 13.5 13.4 Platelet Count 228 214 Mean Platelet Volume 9.2 9.7 Immature Granulocytes % 0.300 0.200 Neutrophils % 73.7 61.5 Lymphocytes % 15.7 25.3 Monocytes % 6.7 7.5 Eosinophils % 3.1 5.1 Basophils % 0.5 0.4 Nucleated Red Blood Cells % 0.0 0.0 Immature Granulocytes # 0.020 0.010 Neutrophils # 5.4 3.3 Lymphocytes # 1.2 1.4 Monocytes # 0.5 0.4 Eosinophils # 0.2 0.3 Basophils # 0.0 0.0 Nucleated Red Blood Cells # 0.0 0.0 Prothrombin Time 13.3 Prothrombin Time Ratio 1.0 INR International Normalized Ratio 1.00 Activated Partial Thromboplast Time 28.1 Urine Color RED Urine Clarity SLIGHTLY CLOUDY Urine pH 6.0 Urine Specific [place] 1.005 Urine Ketones NEGATIVE Urine Nitrite NEGATIVE Urine Bilirubin NEGATIVE Urine Urobilinogen 1+ H Urine Leukocyte Esterase 1+ H Urine Microscopic RBC 70 H Urine Microscopic WBC > 182 H Urine Squamous Epithelial Cells FEW Urine Hemoglobin 3+ Urine Glucose NEGATIVE Urine Total Protein 3+ H Sodium Level 140 140 Potassium Level 4.3 4.4 Chloride Level 103 107 Carbon Dioxide Level 28 29 Anion Gap 9 4 L Blood Urea Nitrogen 19 19 Creatinine 0.93 1.03 Est Glomerular Filtrat Rate mL/min Glucose Level 96 99 Hemoglobin A1c 5.7 Calcium Level 9.1 8.6 Total Bilirubin 0.4 0.5 Direct Bilirubin 0.00 0.00 Indirect Bilirubin 0.4 0.5 Aspartate Amino Transf (AST/SGOT) 22 20 Alanine Aminotransferase (ALT/SGPT) 26 22 Alkaline Phosphatase 109 74 B-Type Natriuretic Peptide 1510 H Total Protein 7.5 6.0 #L Albumin 4.2 3.4 Globulin 3.30 H 2.60 Albumin/Globulin Ratio 1.27 1.30 Lipase 159 Prostate Specific Antigen 49.1 H Phosphorus Level 4.2 Magnesium Level 2.3 Triglycerides Level 56 Cholesterol Level 88 L LDL Cholesterol, Calculated 42 HDL Cholesterol 35 Cholesterol/HDL Ratio 2.5 Exam/Review of Systems Exam Vitals Vital Signs Date Temp Pulse Resp B/P (MAP) Pulse Ox O2 O2 Flow FiO2 Time Delivery Rate 08/17/18 98.3 72 2 135/71 95 11:51 (92) 08/16/18 Room Air 17:48 Intake and Output 08/16/18 08/16/18 08/17/18 1515:00 23:00 07:00 IntakeIntake Total 400 ml 300 ml OutputOutput Total 250 ml 500 ml BalanceBalance 150 ml -200 ml Results Results 24hrs Laboratory Tests Test 08/16/18 14:45 08/17/18 05:21 White Blood Count 7.3 5.3 # Red Blood Count 4.25 L 3.70 L Hemoglobin 12.4 L 11.0 L Hematocrit 37.8 L 33.1 L Mean Corpuscular Volume 88.9 89.5 Mean Corpuscular Hemoglobin 29.2 29.7 Mean Corpuscular Hemoglobin Concent 32.8 33.2 Red Cell Distribution Width 13.5 13.4 Platelet Count 228 214 Mean Platelet Volume 9.2 9.7 Immature Granulocytes % 0.300 0.200 Neutrophils % 73.7 61.5 Lymphocytes % 15.7 25.3 Monocytes % 6.7 7.5 Eosinophils % 3.1 5.1 Basophils % 0.5 0.4 Nucleated Red Blood Cells % 0.0 0.0 Immature Granulocytes # 0.020 0.010 Neutrophils # 5.4 3.3 Lymphocytes # 1.2 1.4 Monocytes # 0.5 0.4 Eosinophils # 0.2 0.3 Basophils # 0.0 0.0 Nucleated Red Blood Cells # 0.0 0.0 Prothrombin Time 13.3 Prothrombin Time Ratio 1.0 INR International Normalized Ratio 1.00 Activated Partial Thromboplast Time 28.1 Urine Color RED Urine Clarity SLIGHTLY CLOUDY Urine pH 6.0 Urine Specific [place] 1.005 Urine Ketones NEGATIVE Urine Nitrite NEGATIVE Urine Bilirubin NEGATIVE Urine Urobilinogen 1+ H Urine Leukocyte Esterase 1+ H Urine Microscopic RBC 70 H Urine Microscopic WBC > 182 H Urine Squamous Epithelial Cells FEW Urine Hemoglobin 3+ Urine Glucose NEGATIVE Urine Total Protein 3+ H Sodium Level 140 140 Potassium Level 4.3 4.4 Chloride Level 103 107 Carbon Dioxide Level 28 29 Anion Gap 9 4 L Blood Urea Nitrogen 19 19 Creatinine 0.93 1.03 Est Glomerular Filtrat Rate mL/min Glucose Level 96 99 Hemoglobin A1c 5.7 Calcium Level 9.1 8.6 Total Bilirubin 0.4 0.5 Direct Bilirubin 0.00 0.00 Indirect Bilirubin 0.4 0.5 Aspartate Amino Transf (AST/SGOT) 22 20 Alanine Aminotransferase (ALT/SGPT) 26 22 Alkaline Phosphatase 109 74 B-Type Natriuretic Peptide 1510 H Total Protein 7.5 6.0 #L Albumin 4.2 3.4 Globulin 3.30 H 2.60 Albumin/Globulin Ratio 1.27 1.30 Lipase 159 Prostate Specific Antigen 49.1 H Phosphorus Level 4.2 Magnesium Level 2.3 Triglycerides Level 56 Cholesterol Level 88 L LDL Cholesterol, Calculated 42 HDL Cholesterol 35 Cholesterol/HDL Ratio 2.5 Medications Medication Current Medications IV Flush (NS 3 ml) 3 ml PER PROTOCOL IV ; Start 08/16/18 at 16:00 Ondansetron HCl (Zofran Inj) 4 mg Q6H PRN IV NAUSEA/VOMITING; Start 08/16/18 at 16:00 Aspirin (Halfprin) 81 mg DAILY PO Last administered on 08/17/18at 08:33; Admin Dose 81 MG; Start 08/17/18 at 09:00 Atorvastatin Calcium (Lipitor) 40 mg QHS PO Last administered on 08/16/18at 22:29; Admin Dose 40 MG; Start 08/16/18 at 21:00 Metoprolol Succinate (Toprol Xl) 25 mg DAILY PO Last administered on 08/17/18at 08:34; Admin Dose 25 MG; Start 08/17/18 at 09:00 Ticagrelor (Brilinta) 90 mg Q12 PO Last administered on 08/17/18at 08:36; Admin Dose 90 MG; Start 08/16/18 at 21:00 Finasteride (Proscar) 5 mg DAILY PO Last administered on 08/17/18at 08:33; Admin Dose 5 MG; Start 08/16/18 at 19:00 Tamsulosin HCl (Flomax) 0.4 mg HS PO Last administered on 08/16/18at 22:29; Admin Dose 0.4 MG; Start 08/16/18 at 21:00 Bicalutamide (Casodex) 50 mg DAILY PO ; Start 08/16/18 at 21:00 RUI NOBLES NP August 17, 2018 12:18
[2018-08-17] MEDS ORDERED: FINASTERIDE 5 MG TAB PO SCH (19:00)
[2018-08-17] MEDS ORDERED: ACETAMINOPHEN 650MG/20.3ML CUP ONE (20:56)
[2018-08-17] MEDS: ATORVASTATIN 40 MG TAB PO SCH (21:43)
[2018-08-17] MEDS: TAMSULOSIN (SR) 0.4 MG CAP PO SCH (21:44)
[2018-08-18] VITALS (8 sets, daily range): BP systolic 118–124; BP diastolic 61–70; PULSE 48–76; RESP 20
[2018-08-18] MEDS: ASPIRIN (EC) 81 MG TAB PO SCH (08:18)
[2018-08-18] MEDS: METOPROLOL (XL) 25 MG TAB PO SCH (08:19)
[2018-08-18] MEDS: BICALUTAMIDE 50 MG TAB PO SCH (08:27)
[2018-08-18] MEDS: TICAGRELOR 90 MG TABLET PO SCH (08:27)
--- NOTE | 2018-08-18 11:01 | CONS ---
Consult Date/Type/Reason Admit Date/Time August 16, 2018 at 14:55 Initial Consult Date 08/17/18 Type of Consultation: Urology Reason for Consultation Gross hematuria, prostate cancer. Requesting Provider: BENITO RODRIGUEZ MD Date/Time of Note DATE: 08/18/18 TIME: 10:58 Subjective The patient is awake and comfortable and has been voiding clear urine. Objective Vitals Vital Signs Date Temp Pulse Resp B/P (MAP) Pulse Ox O2 O2 Flow FiO2 Time Delivery Rate 08/18/18 58 08:01 08/18/18 98.3 20 124/64 97 07:12 (84) 08/16/18 Room Air 17:48 Intake and Output 08/17/18 08/17/18 08/18/18 1515:00 23:00 07:00 IntakeIntake Total 800 ml 400 ml BalanceBalance 800 ml 400 ml Exam The abdomen is soft and the urine is clear. He has no clots in his urine Results/Medications Result Diagram: 08/18/1824 08/18/1824 Results 24 hrs Laboratory Tests Test 08/18/18 05:24 White Blood Count 4.9 Red Blood Count 3.70 L Hemoglobin 10.8 L Hematocrit 33.0 L Mean Corpuscular Volume 89.2 Mean Corpuscular Hemoglobin 29.2 Mean Corpuscular Hemoglobin Concent 32.7 Red Cell Distribution Width 13.4 Platelet Count 211 Mean Platelet Volume 9.5 Immature Granulocytes % 0.400 Neutrophils % 55.9 Lymphocytes % 29.2 Monocytes % 8.2 Eosinophils % 5.7 Basophils % 0.6 Nucleated Red Blood Cells % 0.0 Immature Granulocytes # 0.020 Neutrophils # 2.7 Lymphocytes # 1.4 Monocytes # 0.4 Eosinophils # 0.3 Basophils # 0.0 Nucleated Red Blood Cells # 0.0 Sodium Level 139 Potassium Level 4.1 Chloride Level 107 Carbon Dioxide Level 28 Anion Gap 4 L Blood Urea Nitrogen 20 Creatinine 0.98 Est Glomerular Filtrat Rate mL/min Glucose Level 102 Calcium Level 8.5 Phosphorus Level 4.1 Magnesium Level 2.3 Home Meds Reported Medications Metoprolol Succinate* (Toprol XL*) 25 Mg Tab.sr.24h, 25 MG PO DAILY, #30 TAB 08/16/18 Atorvastatin* (Atorvastatin*) 40 Mg Tablet, 40 MG PO QHS, #30 TAB 08/16/18 Cefpodoxime Proxetil* (Cefpodoxime Proxetil*) 200 Mg Tablet, 200 MG PO Q12, #20 TAB 08/16/18 Ticagrelor* (Brilinta*) 90 Mg Tablet, 90 MG PO Q12, TAB 08/16/18 Aspirin* (Aspirin* EC) 81 Mg Tablet.dr, 81 MG PO DAILY, TAB 08/16/18 Discontinued Reported Medications Aspirin* (Aspirin*) 325 Mg Tablet, DAILY 10/03/11 Clopidogrel Bisulfate (Plavix) 75 Mg Tablet, 75 MG PO DAILY 08/19/11 Nitroglycerin* (Nitroglycerin* SL) 0.4 Mg Tab.subl 07/20/11 Clopidogrel Bisulfate (Plavix) 75 Mg Tablet, DAILY, 0 Refills 07/20/11 Carvedilol* (Carvedilol*) 3.125 Mg Tablet, DAILY, 0 Refills 07/20/11 Benazepril Hcl* (Benazepril Hcl*) 5 Mg Tablet, DAILY, 0 Refills 07/20/11 Medications Current Medications IV Flush (NS 3 ml) 3 ml PER PROTOCOL IV ; Start 08/16/18 at 16:00 Ondansetron HCl (Zofran Inj) 4 mg Q6H PRN IV NAUSEA/VOMITING; Start 08/16/18 at 16:00 Aspirin (Halfprin) 81 mg DAILY PO Last administered on 08/18/18at 08:18; Admin Dose 81 MG; Start 08/17/18 at 09:00 Atorvastatin Calcium (Lipitor) 40 mg QHS PO Last administered on 08/17/18at 21:43; Admin Dose 40 MG; Start 08/16/18 at 21:00 Metoprolol Succinate (Toprol Xl) 25 mg DAILY PO Last administered on 08/18/18at 08:19; Admin Dose 25 MG; Start 08/17/18 at 09:00 Ticagrelor (Brilinta) 90 mg Q12 PO Last administered on 08/18/18at 08:27; Admin Dose 90 MG; Start 08/16/18 at 21:00 Tamsulosin HCl (Flomax) 0.4 mg HS PO Last administered on 08/17/18at 21:44; Admin Dose 0.4 MG; Start 08/16/18 at 21:00 Bicalutamide (Casodex) 50 mg DAILY PO Last administered on 08/18/18at 08:27; Admin Dose 50 MG; Start 08/16/18 at 21:00 Finasteride (Proscar) 5 mg DAILY@1900 PO Last administered on 08/17/18at 21:43; Admin Dose 5 MG; Start 08/17/18 at 19:00 Assessment/Plan Hospital Course (Demo Recall) 82-year-old male had a heart attack about 3 weeks ago while at [place]. He underwent coronary angiography and stent placement. He was started on anticoagulation. He started having hematuria and that gradually got worse. He did go and see his PCP Dr. BRYANT and he states that he was sent to a urologist but he states no rectal exam was done. As he continued to have hematuria he went to [facility] and was evaluated there and discharged home with a diagnosis of urinary tract infection. Again since he continued to have hematuria he came in to the emergency room here and was admitted and a urology consultation was requested. Upon careful questioning of the patient and examining him it appears he underwent prostate surgery about 40 years ago and about 10 years ago he was diagnosed with prostate cancer was advised to have radiation therapy and did not go through any treatment. Also on the rectal examination now his prostate is very large and hard most likely consistent was prostate cancer. His hematuria is at the start of the urination then the urine becomes a clear and it ends with hematuria. This is also suggestive of bleeding from his prostate. He denies any history of kidney stones. It appears that the patient also had a CT scan of the abdomen and pelvis in October 2011 and that showed at that time a very large prostate as well. The most likely this patient is bleeding from his prostate and has prostate cancer. Patient did have the CT scan of the abdomen and pelvis done last night and that showed: Mass effect base of bladder consistent with given history of prostate cancer. No evidence of local invasion or metastatic disease on limited noncontrast CT abdomen pelvis. Bibasilar lung fibrosis. Coronary artery stent. Vascular calcifications. 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 Also the PSA came back 49.1. I did show the patient his CT scan and the large prostate protruding into the bladder. I explained to him the treatment. I explained to him why we are giving him the Casodex and the Proscar and that he will need later on to see his medical group urologist for consideration of Lupron Depo injections. I discussed the same with his daughter who was at his bedside this morning. I did show her the results of his PSA and the CT scan of the abdomen and pelvis. I had her take pictures of the large prostate pr otruding into his bladder so she could share that with his urologist. She also did take a picture of the CT scan report. Patient may be discharged home today and continue the finasteride and the Casodex. CHADWICK PAVON MD August 18, 2018 11:01
[2018-08-18] MEDS ORDERED: BICA50TA5 PO (11:11)
[2018-08-18] MEDS ORDERED: FINA5TAB4 PO (11:11)
--- NOTE | 2018-08-18 11:15 | PDOCDIS ---
Discharge Instructions CONDITION [id number] Patient Condition: [id number] Stable HOME CARE INSTRUCTIONS: [id number] Diet Instructions: [id number] Low Fat /Cholesterol FOLLOW UP/APPOINTMENTS Follow-up Plan 1. Follow-up with outpatient neurologist at the earliest. 2. Follow-up with your banking pin adjuster as scheduled. OTHER ORDERS: Other Orders: 1. Resume home medications. 2. Start taking Casodex and Proscar. 3. Follow a low-cholesterol diet. 4. Resume activities as tolerated. 5. Please follow-up with your banking pin adjuster and urologist as outpatient. 6. Please go to the nearest emergency room if you have any significant bleeding with urination, chest pain, persistent fevers, or any other unusual signs/symptoms. RUI NOBLES NP August 18, 2018 11:15
--- NOTE | 2018-08-18 11:44 | DS ---
Date/Time of Note Date/Time of Note DATE: 08/18/18 TIME: 11:42 Discharge Summary Admission/Discharge Info Admit Date/Time August 16, 2018 at 14:55 Discharge Date/Time Discharge Diagnosis 1. Hematuria. 2. Prostate cancer. Started on Casodex and Proscar. 3. CAD, status post coronary artery stenting. 4. Hypertension. 5. Dyslipidemia. 6. Normocytic, normochromic anemia. Patient Condition: Stable Consults 1. Jace Casanova MD, Urology. 2. Wenceslao Stroud MD, Cardiology. Procedures CT Abdomen & Pelvis IMPRESSION: Mass effect base of bladder consistent with given history of prostate cancer. No evidence of local invasion or metastatic disease on limited noncontrast CT abdomen pelvis. Bibasilar lung fibrosis. Coronary artery stent. Vascular calcifications. 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 Hx of Present Illness Reason for admission: Hematuria. Consultants 1. Jace Casanova MD, Urology. This is a 82-year-old male with a past medical history of CAD status post coronary artery stenting in 2011 and recent coronary artery stenting a few days ago, hypertension, and hyperlipidemia. Patient verbalized that he had his last stent put in a hospital in [place], when he was attending a function in the local area. After the latest stent placement, the patient was started on Brilinta along with aspirin. The patient came back to [place]. The patient has been noticing episodes of hematuria. The patient went to [facility] emergency room on 08/15/2018 where he was evaluated and was discharged home on antibiotics for an apparent urinary tract infection. The patient denied any dysuria, urinary urgency frequency, or febrile illness. The patient denied any flank pain. The patient also had similar problem with hematuria after his first stent placement in 2011. In the emergency room at [facility], the patient was noticed to have a hemoglobin hematocrit of 12.4 and 37.8 respectively. The patient's urinalysis was showing 3+ hemoglobin. Urinalysis also showed 1+ leukocyte esterase with urine microscopic WBC more than 182. The patient's WBC in the blood was within normal limits. Hospital Course The patient was admitted to inpatient setting. A urology consult was obtained. After urology evaluated the patient, it was confirmed that the patient has underlying prostate cancer. The patient was informed about this prostate cancer approximately 10 years ago. However, the patient had refused any kind of treatment. The patient's hematuria was concluded to be secondary to his underly ing prostate cancer. The patient's PSA was very high (49.1). The patient's CT scan of the abdomen and pelvis also showed significantly enlarged prostate gland. After conversation with the patient and the patient's family, the patient agreed to be started on Casodex. The patient was already started on Proscar. The patient did not have any significant gross hematuria after he was hospitalized. The patient was continued on aspirin and Brilinta because of his stent placement approximately 3 weeks ago at [facility]. The patient did not require any blood transfusion. The patient has underlying CAD and is status post coronary artery stenting in 2011. As per the conversation with the patient's family, he had a stent thrombosis because of noncompliance with aspirin. The patient had a new stent put in at [facility]. The patient was evaluated by cardiology and the patient needs to be continued on dual antiplatelet therapy to prevent restenosis of the stent. The patient was maintained on beta-blockers for his underlying hypertension. The patient was on statins for his underlying dyslipidemia. The patient had a stable hospital course. The patient's hematuria is more or less resolved. The patient will be continued on Casodex and Proscar. The patient needs outpatient follow-up with urology and cardiology. The patient/family also asked about DNR status. residential mental health worker order was put in and the oncology social worker delivered POLST form to the patient/patient's family. The patient can discussed the CODE STATUS with his primary care physician as outpatient and fill up the POLST forum. Discharge Instructions 1. Resume home medications. 2. Start taking Casodex and Proscar. 3. Follow a low-cholesterol diet. 4. Resume activities as tolerated. 5. Please follow-up with your car bracer and urologist as outpatient. 6. Please go to the nearest emergency room if you have any significant bleeding with urination, chest pain, persistent fevers, or any other unusual signs/symptoms. The patient verbalized understanding of his discharge instructions. At this time I would like to thank all the consultants for seeing the patient and providing clinical recommendations. The patient was seen in collaboration with Dr. Prieto. Home Meds Active Scripts Bicalutamide* (Casodex*) 50 Mg Tablet, 50 MG PO DAILY, #30 TAB Prov:RUI NOBLES TOOL ADJUSTER 08/18/18 Finasteride* (Finasteride*) 5 Mg Tablet, 5 MG PO DAILY@1900, #30 TAB Prov:RUI NOBLES TOOL ADJUSTER 08/18/18 Reported Medications Metoprolol Succinate* (Toprol XL*) 25 Mg Tab.sr.24h, 25 MG PO DAILY, #30 TAB 08/16/18 Atorvastatin* (Atorvastatin*) 40 Mg Tablet, 40 MG PO QHS, #30 TAB 08/16/18 Ticagrelor* (Brilinta*) 90 Mg Tablet, 90 MG PO Q12, TAB 08/16/18 Aspirin* (Aspirin* EC) 81 Mg Tablet.dr, 81 MG PO DAILY, TAB 08/16/18 Discontinued Reported Medications Cefpodoxime Proxetil* (Cefpodoxime Proxetil*) 200 Mg Tablet, 200 MG PO Q12, #20 TAB 08/16/18 Aspirin* (Aspirin*) 325 Mg Tablet, DAILY 10/03/11 Clopidogrel Bisulfate (Plavix) 75 Mg Tablet, 75 MG PO DAILY 08/19/11 Nitroglycerin* (Nitroglycerin* SL) 0.4 Mg Tab.subl 07/20/11 Clopidogrel Bisulfate (Plavix) 75 Mg Tablet, DAILY, 0 Refills 07/20/11 Carvedilol* (Carvedilol*) 3.125 Mg Tablet, DAILY, 0 Refills 07/20/11 Benazepril Hcl* (Benazepril Hcl*) 5 Mg Tablet, DAILY, 0 Refills 07/20/11 Follow-up Plan 1. Follow-up with outpatient urologist at the earliest. 2. Follow-up with your car bracer as scheduled. Primary Care Provider Josias Levy MD Time spent on discharge: > 30 minutes Pending Labs Laboratory Tests Test 08/18/18 05:24 White Blood Count 4.9 10^3/ul (4.8-10.8) Red Blood Count 3.70 10^6/ul (4.70-6.10) Hemoglobin 10.8 g/dl (14.0-18.0) Hematocrit 33.0 % (42.0-52.0) Mean Corpuscular Volume 89.2 fl (82.0-101.0) Mean Corpuscular Hemoglobin 29.2 pg (29.0-33.0) Mean Corpuscular Hemoglobin Concent 32.7 g/dl (32.0-37.0) Red Cell Distribution Width 13.4 % (11.5-14.5) Platelet Count 211 10^3/UL (140-415) Mean Platelet Volume 9.5 fl (7.4-10.4) Immature Granulocytes % 0.400 % (0.001-0.429) Neutrophils % 55.9 % (39.0-77.0) Lymphocytes % 29.2 % (15.0-51.0) Monocytes % 8.2 % (0.0-11.0) Eosinophils % 5.7 % (0.0-7.0) Basophils % 0.6 % (0.0-2.0) Nucleated Red Blood Cells % 0.0 /100WBC (0.0-0.0) Immature Granulocytes # 0.020 10^3/ul (0.0-0.031) Neutrophils # 2.7 10^3/ul (1.6-7.5) Lymphocytes # 1.4 10^3/ul (0.8-2.9) Monocytes # 0.4 10^3/ul (0.3-0.9) Eosinophils # 0.3 10^3/ul (0.0-0.5) Basophils # 0.0 10^3/ul (0.0-0.1) Nucleated Red Blood Cells # 0.0 10^3/ul (0.0-0.0) Sodium Level 139 mmol/L (135-144) Potassium Level 4.1 mmol/L (3.5-5.1) Chloride Level 107 mmol/L (97-110) Carbon Dioxide Level 28 mmol/L (21-31) Anion Gap 4 (5-13) Blood Urea Nitrogen 20 mg/dl (7-20) Creatinine 0.98 mg/dl (0.61-1.24) Est Glomerular Filtrat Rate mL/min mL/min (>60) Glucose Level 102 mg/dl (70-220) Calcium Level 8.5 mg/dl (8.4-10.2) Phosphorus Level 4.1 mg/dl (2.5-4.9) Magnesium Level 2.3 mg/dl (1.7-2.5) RUI NOBLES NP August 18, 2018 11:44
--- NOTE | 2018-08-18 13:23 | CONS ---
Assessment/Plan Assessment/Plan Hospital Course (Demo Recall) 1) CAD 2) Recent history of TX and PCI per patient history 3) HTN 4) HLP 5) Hematuria 6) Prostate Cancer no further hematuria cont asa/brilinta dc planning with close f/u with primary cards Consultation Date/Type/Reason Admit Date/Time August 16, 2018 at 14:55 Initial Consult Date 08/17/18 Type of Consult Cardiology Requesting Provider: BENITO RODRIGUEZ MD Date/Time of Note DATE: 08/18/18 TIME: 13:22 24 HR Interval Summary Free Text/Dictation no cp,palp,sob,hematuria Exam/Review of Systems Vital Signs Vitals Vital Signs Date Temp Pulse Resp B/P (MAP) Pulse Ox O2 O2 Flow FiO2 Time Delivery Rate 08/18/18 98.3 72 20 118/61 93 11:13 (80) 08/16/18 Room Air 17:48 Intake and Output 08/17/18 08/17/18 08/18/18 1515:00 23:00 07:00 IntakeIntake Total 800 ml 400 ml BalanceBalance 800 ml 400 ml Exam Constitutional: alert, oriented (nad) Head: normocephalic Respiratory: clear to auscultation, normal air movement Cardiovascular: regular rate and rhythm (s1s2) Gastrointestinal: soft, non-tender, bowel sounds Extremities: other (no edema) Labs Result Diagram: 08/18/1852308/18/18 0524 Results 24hrs Laboratory Tests Test 08/18/18 05:24 White Blood Count 4.9 Red Blood Count 3.70 L Hemoglobin 10.8 L Hematocrit 33.0 L Mean Corpuscular Volume 89.2 Mean Corpuscular Hemoglobin 29.2 Mean Corpuscular Hemoglobin Concent 32.7 Red Cell Distribution Width 13.4 Platelet Count 211 Mean Platelet Volume 9.5 Immature Granulocytes % 0.400 Neutrophils % 55.9 Lymphocytes % 29.2 Monocytes % 8.2 Eosinophils % 5.7 Basophils % 0.6 Nucleated Red Blood Cells % 0.0 Immature Granulocytes # 0.020 Neutrophils # 2.7 Lymphocytes # 1.4 Monocytes # 0.4 Eosinophils # 0.3 Basophils # 0.0 Nucleated Red Blood Cells # 0.0 Sodium Level 139 Potassium Level 4.1 Chloride Level 107 Carbon Dioxide Level 28 Anion Gap 4 L Blood Urea Nitrogen 20 Creatinine 0.98 Est Glomerular Filtrat Rate mL/min Glucose Level 102 Calcium Level 8.5 Phosphorus Level 4.1 Magnesium Level 2.3 Medications Medications Current Medications IV Flush (NS 3 ml) 3 ml PER PROTOCOL IV ; Start 08/16/18 at 16:00 Ondansetron HCl (Zofran Inj) 4 mg Q6H PRN IV NAUSEA/VOMITING; Start 08/16/18 at 16:00 Aspirin (Halfprin) 81 mg DAILY PO Last administered on 08/18/18 08:18; Admin Dose 81 MG; Start 08/17/18 at 09:00 Atorvastatin Calcium (Lipitor) 40 mg QHS PO Last administered on 08/17/18 21:43; Admin Dose 40 MG; Start 08/16/18 at 21:00 Metoprolol Succinate (Toprol Xl) 25 mg DAILY PO Last administered on 08/18/18 08:19; Admin Dose 25 MG; Start 08/17/18 at 09:00 Ticagrelor (Brilinta) 90 mg Q12 PO Last administered on 08/18/18 08:27; Admin Dose 90 MG; Start 08/16/18 at 21:00 Tamsulosin HCl (Flomax) 0.4 mg HS PO Last administered on 08/17/18 21:44; Admin Dose 0.4 MG; Start 08/16/18 at 21:00 Bicalutamide (Casodex) 50 mg DAILY PO Last administered on 08/18/18 08:27; Admin Dose 50 MG; Start 08/16/18 at 21:00 Finasteride (Proscar) 5 mg DAILY@1900 PO Last administered on 08/17/18 21:43; Admin Dose 5 MG; Start 08/17/18 at 19:00 Jesse Talavera DO August 18, 2018 13:23
--- NOTE | 2018-08-18 14:51 | RADRPT ---
Echocardiogram Report Patient Name: DEVORAH MURILLOPatient ID: [id number] : 05-24-1936 (83y )Study Date: 08/17/2018 10:20:34 AM Gender: MAccession #: [id number] Tech: Lavelle Webber [facility] Location: [facility] Ref.Physician: RAMON SNYDER Height(Cm): BSA: Weight(Kg): Quality: AdequateOrder Physician: RAMON SNYDER Account #: Procedures: Echocardiographic Report: Transthoracic echocardiogram with complete 2D, M-Mode, and doppler examination. Indications: [place]. Measurements: 2D/M Mode Doppler Measurement Value Normal Range Measurement Value Normal Range LVIDd 2D 3.5 [ 4.2 - 5.8 ] cm AV Peak Arvind 0.9 [ 100.0 - 170.0 ] cm/sec LVIDs 2D 2.6 [ 2.5 - 4.0 ] cm AV Peak PG 3.0 [ 2.0 - 9.0 ] mmHg LVPWd 2D 0.7 [ 0.6 - 1.0 ] cm LVOT Peak Arvind 0.8 [ 70.0 - 110.0 ] cm/sec IVSd 2D 1.5 [ 0.6 - 1.0 ] cm LVOT Peak PG 3.0 [ 2.0 - 6.0 ] mmHg AoR Diam 2D 2.9 [ 2.6 - 3.4 ] cm MV E Peak Arvind 0.5 [ 60.0 - 130.0 ] cm/sec EDV 2D 49.8 [ 62.0 - 150.0 ] ml MV A Peak Arvind 0.7 [ 100.0 - 120.0 ] cm/sec ESV 2D 24.6 [ 21.0 - 61.0 ] ml MV E/A 0.8 [ 0.8 - 1.5 ] ratio EF 2D 50.6 [ 52.0 - 72.0 ] percent MV Decel Time 201 [ 104 - 258 ] msec LA Dimen 2D 3.0 [ 3.0 - 4.0 ] cm Lat E` Arvind 0.1 [ 10.0 - 15.0 ] cm/sec Lateral E/E` 4.9 [ 1.0 - 2.0 ] ratio MV E/A 0.8 [ 0.8 - 1.5 ] ratio RA Pressure 3.0 mmHg Findings: Left Ventricle: Overall, lower limits of normal left ventricular systolic function. Not all segments visualized. Sigmoid septum. Ejection fraction is visually estimated at 50 %. Tissue Doppler/Mitral Doppler indices are consistent with impaired relaxation (Stage I diastolic dysfunction). Right Ventricle: Normal right ventricular size. Normal right ventricular systolic function. Left Atrium: The left atrium is normal in size. Right Atrium: The right atrium is normal in size. Mitral Valve: Mild mitral leaflet calcification. Mild mitral annular calcification. Trace mitral regurgitation. Aortic Valve: No hemodynamically significant aortic stenosis by doppler. Aortic cusps appear mildly calcified. Tricuspid Valve: Normal appearance of the tricuspid valve. Unable to obtain RVSP due to minimal presence of tricuspid regurgitation. Pericardium: Normal pericardium with no significant pericardial effusion. Aorta: Normal aortic root. IVC: Normal size and normal respiratory collapse consistent with normal right atrial pressure. Conclusions: Overall, lower limits of normal left ventricular systolic function. Not all segments visualized. Sigmoid septum. Ejection fraction is visually estimated at 50 %. Tissue Doppler/Mitral Doppler indices are consistent with impaired relaxation (Stage I diastolic dysfunction). Normal right ventricular size. Normal right ventricular systolic function. The left atrium is normal in size. The right atrium is normal in size. No significant valvular stenosis or regurgitation seen. Normal pericardium with no significant pericardial effusion. Electronically Signed By: Jesse Talavera 2018-08-18 14:50:20 PDT
== END 2018-08-18 18:13 | disposition home or self-care (01) | DRG 722 ==
LOC: E/R 13:01 → 6WM 14:55
PROVIDERS: ADMIT Internal Medicine; ATTEND Internal Medicine
DX: C61 Malignant neoplasm of prostate (principal); I21.9 Acute myocardial infarction, unspecified; R31.0 Gross hematuria; I25.10 Atherosclerotic heart disease of native coronary artery without angina pectoris; I10 Essential (primary) hypertension; D64.9 Anemia, unspecified; E78.5 Hyperlipidemia, unspecified; Z95.5 Presence of coronary angioplasty implant and graft; Z79.02 Long term (current) use of antithrombotics/antiplatelets; Z79.82 Long term (current) use of aspirin
CPT/HCPCS: 36415; 74176; 80048; 80053; 80061; 81001; 83036; 83690; 83735; 83880; 84100; 84153; 84154; 85025; 85610; 85730; 87086; 93306; J0696

== ENCOUNTER 2018-12-25 20:33 | Emergency (ER) | payer OTHER ==
[~2018-12-25] VITALS: Ht 170.2 cm; Wt 55.5 kg
[~2018-12-25 20:33] MED LIST changes: +ASPI-817 PO; -ASPI325T30; +ATOR40TA68 PO; -BENA5TAB33; +BICA50TA5 PO; -CARV3.1260; -CLOP75TA19; -CLOP75TA19 PO; +FINA5TAB4 PO; +METO-335 PO; -NITR0.4T32; +TICA90TA PO
[2018-12-25 20:46] VITALS: Ht 170.2 cm; Wt 55.5 kg
[2018-12-25 21:15] VITALS: BP 150/74; PULSE 47; RESP 16
== END 2018-12-25 21:35 | disposition home or self-care (01) ==
LOC: E/R 20:33
DX: R00.1 Bradycardia, unspecified (principal); I10 Essential (primary) hypertension; Z79.82 Long term (current) use of aspirin
CPT/HCPCS: 93005